=== PATIENT | female | born 1990 | race Asian ===

== ENCOUNTER 2019-11-17 06:55 | Inpatient (IN) | payer BC, OTHER ==
[2019-11-17] MEDS ORDERED: AMPICILLIN SODIUM 2 GM VIAL ONE (07:48)
[2019-11-17] MEDS ORDERED: SODIUM CHLORIDE 100 ML IVPB ONE (07:48)
[2019-11-17] MEDS ORDERED: BUTORPHANOL TARTRATE 1 MG/ML VIAL IVPUSH PRN (08:15)
[2019-11-17] MEDS ORDERED: PROMETHAZINE HCL 25 MG/1 ML VIAL IVPB ONE (08:15)
--- NOTE | 2019-11-17 08:15 | HP ---
Past Medical History - Primary Care Physician PCP:: Bakari Brown - Admission Chief Complaint: 38 weeks, labor History of Present Illness: 29 yo f g 1 p0 38 weeks, c/o contraction since 3 am today, no rom, no bleeding, no fever , GBS positive , cx 3 cm 70 vx -3 fhr car 1, irregular contraction History Source: Patient Limitations to Obtaining History: No Limitations - Past Medical History ...: 1 ...Para: 0 ...EDC by Sono: 11/28/19 Endocrine: Yes: Other (PCOS) - Past Surgical History Hx Myomectomy: No Hx Transabdominal Cerclage: No - Smoking History Have you smoked in the past 12 months: No - Alcohol/Substance Use Hx Alcohol Use: No - Social History Usual Living Arrangement: Yes: With Spouse History of Recent Travel: No Home Medications - Allergies Allergies/Adverse Reactions: Allergies Allergy/AdvReac Type Severity Reaction Status Date / Time No Known Allergies Allergy Verified 11/17/19 09:52 - Home Medications Home Medications: Ambulatory Orders Vitamins (Sjr) - 1 tab PO DAILY 11/17/19 Review of Systems - Review of Systems Constitutional: reports: No Symptoms Eyes: reports: No Symptoms HENT: reports: No Symptoms Neck: reports: No Symptoms Cardiovascular: reports: No Symptoms Respiratory: reports: No Symptoms Gastrointestinal: reports: No Symptoms Genitourinary: reports: No Symptoms Breasts: reports: No Symptoms Reported Musculoskeletal: reports: No Symptoms Integumentary: reports: No Symptoms Neurological: reports: No Symptoms Endocrine: reports: No Symptoms Hematology/Lymphatic: reports: No Symptoms Psychiatric: reports: No Symptoms Physical Exam - Maternity Constitutional: Yes: Well Nourished, No Distress, Calm Eyes: Yes: WNL, Conjunctiva Clear, EOM Intact HENT: Yes: WNL, Atraumatic, Normocephalic Neck: Yes: WNL, Supple, Trachea Midline Cardiovascular: Yes: WNL, Regular Rate and Rhythm Breast(s): Yes: WNL - Abdominal Exam/OB Fundal Height: 38 Number of Fetuses: Single Presentation: Vertex Contractions: Yes Regularity: Irregular Intensity: Moderate Monitor Mode: External Heart Rate Location: [facility] Category: I Accelerations: Non-Uniform Decelerations: None - Vaginal Exam/OB Vaginal Bleediing: No Speculum Exam: No Dilatation (cm): 3 Effacement (%): 70 Amniotic Membrane Status: Bulging Presentation: Vertex/Position Station: -3 - Physical Exam Musculoskeletal: Yes: WNL Extremities: Yes: WNL Edema: LLE: Trace, RLE: Trace Deep Tendon Reflex Grade: Normal +2 Psychiatric: Yes: WNL Hemorrhage Risk Assessment - Risk Factors Medium Risk Factors: Yes: None High Risk Factors: Yes: None Risk Score: 1 Risk Level: Medium Risk Problem List - Problems (1) with 38 completed weeks gestation Code(s): Z3A.38 - 38 WEEKS GESTATION OF (2) Labor established Code(s): EQX9610 - Assessment/Plan admit fhm GBS prophylaxis pain management if irregular contraction will benefit from pitocin stimulation
[2019-11-17] MEDS ORDERED: AMPICILLIN - 2 GM in SODIUM CHLORIDE 100 ML IVPB ONE (08:17)
[2019-11-17] MEDS ORDERED: DEXTROSE 5%-LACTATED RINGERS 1,000 ML IV SCH (08:30)
[2019-11-17] MEDS ORDERED: OXYTOCIN 15 UNITS/ LR 250 ML 250 ML IVPB SCH (09:00)
[2019-11-17] MEDS ORDERED: ELECTROLYTE-148 SOLN 1,000 ML IV SCH (09:00)
[2019-11-17] MEDS ORDERED: OXYTOCIN 30 UNITS in 0.9% NS 30 UNIT/500 ML INFUS.BAG IVPB SCH (09:15)
[2019-11-17 09:29] LABS: BASO % 0.1 % (0-2.0); EOS % 0.4 % (0-4.5); HEMATOCRIT 38.6 % (32.4-45.2); HEMOGLOBIN 12.9 GM/dL (10.7-15.3); LYMPH % 16.3 % (8-40); MCH 30.7 pg (25.7-33.7); MCHC 33.5 g/dl (32.0-36.0); MEAN CELL VOLUME 91.8 fl (80-96); MEAN PLT VOLUME 7.5 fl (7.5-11.1); MONO % 5.4 % (3.8-10.2); NEUT % 77.8 % (42.8-82.8); PLATELET COUNT 229 K/MM3 (134-434); RBC 4.21 M/mm3 (3.60-5.2); RDW 14.6 % (11.6-15.6); WHITE BLOOD COUNT 8.8 K/mm3 (4.0-10.0)
[2019-11-17 09:43] LABS: BLOOD UREA NITROGEN 6.3 mg/dL (7-18); CALCIUM 8.8 mg/dL (8.5-10.1); CREATININE 0.5 mg/dL (0.55-1.3); POTASSIUM 3.9 mmol/L (3.5-5.1)
[2019-11-17 09:44] VITALS: BMI 28.7
[2019-11-17 09:52] LABS: INR 0.99 (0.83-1.09); PROTHROMBIN TIME (PATIENT) 11.7 SEC (9.7-13.0)
[2019-11-17 09:55] LABS: ACTIVATED PTT 29.9 SECONDS (25.2-36.5)
[2019-11-17] MEDS ORDERED: FENTANYL/BUPIVACAINE/NS/PF - PCEA - 50 ML DISP.SYRIN EP ONE ×2 (10:00→15:21)
[2019-11-17] MEDS ORDERED: FENTANYL/BUPIVACAINE/NS/PF - PCEA - 50 ML DISP.SYRIN EP SCH (10:30)
[2019-11-17] MEDS ORDERED: NALOXONE HCL 0.4 MG/ML VIAL IVPUSH PRN (10:53)
[2019-11-17] MEDS ORDERED: AMPICILLIN SODIUM 1 GM VIAL ONE ×2 (10:54→16:02)
[2019-11-17] MEDS ORDERED: OXYTOCIN 30 UNITS in 0.9% NS 30 UNIT/500 ML INFUS.BAG IVPB ONE (10:54)
[2019-11-17] MEDS: AMPICILLIN - 1 GM in SODIUM CHLORIDE 100 ML IVPB SCH ×2 (12:00→16:00)
--- NOTE | 2019-11-17 14:30 | PN ---
Progress Note (short form) - Note Progress Note: cx 6 cm 70 vx -3 arom clear , fhr cat 1, regular contraction, no descent of head ,will revaluate in i hr after ROM Problem List - Problems (1) with 38 completed weeks gestation Code(s): Z3A.38 - 38 WEEKS GESTATION OF (2) Labor established Code(s): [id number] -
[2019-11-17] MEDS ORDERED: LIDOCAINE HCL 1% PRESERVATIVE FREE - 30ML VIAL ONE (16:17)
[2019-11-17] MEDS ORDERED: OXYTOCIN 20 UNITS in 0.9% NS 20 UNIT/1,000 ML INFUS.BAG IV ONE (16:17)
--- NOTE | 2019-11-17 16:28 | PN ---
Progress Note (short form) - Note Progress Note: 9 cm, 100 vx 1+ station, fhr cat 1, regular contraction, scalp electode applied for better fh monitoring during pushing time Problem List - Problems (1) with 38 completed weeks gestation Code(s): Z3A.38 - 38 WEEKS GESTATION OF (2) Labor established Code(s): [id number] -
[2019-11-17] MEDS ORDERED: WITCH HAZEL 50% (TUCKS) 40 PAD/JAR PAD TP PRN (18:24)
[2019-11-17] MEDS ORDERED: METHYLERGONOVINE MALEATE 0.2 MG/1 ML AMP IM PRN (18:24)
[2019-11-17] MEDS ORDERED: BISACODYL 10 MG SUPP.RECT RC PRN (18:24)
[2019-11-17] MEDS ORDERED: BENZOCAINE 28 GM HEMORRHOIDAL OINTMENT TP PRN (18:24)
[2019-11-17] MEDS ORDERED: BENZOCAINE 20% 57 GM BOTTLE TP PRN (18:24)
--- NOTE | 2019-11-17 18:28 | PN ---
Delivery - Delivery Vaginal Delivery: Spontaneous Type of Anesthesia: Epidural Episiotomy/Laceration: None (head delivered . loida, nasopharynx suctioned ,cord around neck once reduced , ant. and post. shoulder with no difficulty , live baby girl 8/9 , no laceration, no episiotmy, ebl 300 cc , no complication , baby and mom bonded) Delivery, Single - [place] Feeding Plan Initial Plan: Exclusive throughout hospitalization
[2019-11-17] MEDS ORDERED: D5W-LR W/ 20 UNITS OXYTOCIN 1,000 ML IV SCH (18:30)
[2019-11-17] MEDS ORDERED: OXYTOCIN 20 UNITS in 0.9% NS 20 UNIT/1,000 ML INFUS.BAG IV SCH (18:30)
[2019-11-18] MEDS: AMPICILLIN - 1 GM in SODIUM CHLORIDE 100 ML IVPB SCH ×2 (02:07→02:08)
[2019-11-18] MEDS: ACETAMINOPHEN 325 MG TABLET (FP) PO PRN ×3 (02:24→17:19)
[2019-11-18] MEDS: IBUPROFEN 600 MG TABLET (FP) PO PRN ×3 (02:25→17:20)
[2019-11-18 07:42] LABS: BASO % 0.2 % (0-2.0); EOS % 0.7 % (0-4.5); HEMATOCRIT 35.6 % (32.4-45.2); HEMOGLOBIN 11.8 GM/dL (10.7-15.3); LYMPH % 16.1 % (8-40); MCH 30.9 pg (25.7-33.7); MCHC 33.1 g/dl (32.0-36.0); MEAN CELL VOLUME 93.3 fl (80-96); MEAN PLT VOLUME 7.5 fl (7.5-11.1); MONO % 6.2 % (3.8-10.2); NEUT % 76.8 % (42.8-82.8); PLATELET COUNT 189 K/MM3 (134-434); RBC 3.82 M/mm3 (3.60-5.2); RDW 14.9 % (11.6-15.6)
--- NOTE | 2019-11-18 08:04 | PN ---
Progress Note (short form) - Note Progress Note: ppd 1 no c/o, voids ok no excess vaginal bleding CBC, BMP 11/17/19 08:43 Last Vital Signs Temp Pulse Resp BP Pulse Ox 98.0 F 88 20 103/69 100 11/18/19 05:00 11/18/19 05:00 11/18/19 05:00 11/18/19 05:00 11/17/19 17:00 abdomen soft, uterus firm, non tender lochia mild no calf tenderness plan ambulate, cbc plan for d/c home in am Problem List - Problems (1) with 38 completed weeks gestation Code(s): Z3A.38 - 38 WEEKS GESTATION OF (2) Labor established Code(s): [id number] -
[2019-11-18] MEDS: FERROUS SO4 325 MG TABLET (FP) PO SCH ×2 (09:00→17:20)
[2019-11-18] MEDS: PRENATAL VITAMINS W/ FOLIC ACID TABLET (FP) PO SCH (09:36)
[2019-11-18 21:48] VITALS: BP 100/66; PULSE 84; TEMP 98.1
[2019-11-18] MEDS ORDERED: SENNOSIDES/DOCUSATE COMBO (SENNA PLUS) TABLET (UD) PO PRN (22:00)
[2019-11-19] MEDS: IBUPROFEN 600 MG TABLET (FP) PO PRN (05:02)
[2019-11-19] MEDS: ACETAMINOPHEN 325 MG TABLET (FP) PO PRN (05:03)
[2019-11-19] MEDS: FERROUS SO4 325 MG TABLET (FP) PO SCH (08:53)
[2019-11-19] MEDS: PRENATAL VITAMINS W/ FOLIC ACID TABLET (FP) PO SCH (10:43)
--- NOTE | 2019-11-19 10:55 | DS ---
Physical Exam-[employer] Vital Signs: Vital Signs Temperature 98.1 F 11/18/19 21:46 Pulse Rate 84 11/18/19 21:46 Respiratory Rate 20 11/18/19 21:46 Blood Pressure 100/66 11/18/19 21:46 O2 Sat by Pulse Oximetry (%) 100 11/17/19 17:00 Constitutional: Yes: Well Nourished, No Distress, Calm Eyes: Yes: WNL, Conjunctiva Clear, EOM Intact HENT: Yes: WNL, Atraumatic, Normocephalic Neck: Yes: WNL, Supple, Trachea Midline Cardiovascular: Yes: WNL, Regular Rate and Rhythm Respiratory: Yes: WNL, Regular, CTA Bilaterally Gastrointestinal: Yes: WNL ...Rectal Exam: Yes: WNL Renal/: Yes: WNL ....Post : Yes: Uterus firm, Uterus non-tender, Slight lochia rubra Breast(s): Yes: WNL Musculoskeletal: Yes: WNL Extremities: Yes: WNL Edema: No Integumentary: Yes: WNL Neurological: Yes: WNL, Alert, Oriented ...Motor Strength: WNL Psychiatric: Yes: WNL, Alert, Oriented Labs: CBC, BMP 11/18/19 07:10 11/17/19 08:43 Delivery - Delivery Vaginal Delivery: Spontaneous Type of Anesthesia: Epidural Episiotomy/Laceration: None EBL (cc): 300 Delivery, Single - Stages of Labor Date 1st Stage Initiatied: 11/17/19 Time 1st Stage Initiated: 00:00 Date 2nd Stage Initiated: 11/17/19 Time 2nd Stage Initiated: 17:00 Date of Delivery: 11/17/19 Time of Delivery: 17:58 Time Placenta Delivered: 18:05 Placenta: Yes: Spontaneous - Condition of Quality Internship/Shoer Present: Yes Name: Mae Berman Gender: Female Weight: 6 lb 7 oz Position: Left, OA Total Hours ROM (Hrs/Mins): 3hrs 58 min - 1 Minute Total Score: 8 5 Minutes Total Score: 9 - Feeding Plan Initial Plan: Exclusive throughout hospitalization Benefits of Exclusively reinforced: Yes Discharge Summary Problems reviewed: Yes Reason For Visit: LABOR ADMISSION Current Active Problems Labor established (Acute) with 38 completed weeks gestation (Acute) Procedures: Principal: Other Procedures: epidural anesthesia Hospital Course: no complication Health Concerns: obesity, PCOS Plan of Treatment: wt loss, exercise , low carb diet Condition: Good - Instructions Diet, Activity, Other Instructions: regular diet, no intercourse , follow up office4 weeks, if fever, pain,heavy vaginal bleeding call md Referrals: Madelyn Molina MD [Staff Physician] - Disposition: HOME - Home Medications Comprehensive Discharge Medication List: Ambulatory Orders Vitamins (Sjr) - 1 tab PO DAILY 11/17/19 Ibuprofen [Motrin -] 600 mg PO QID #28 tablet 11/18/19
== END 2019-11-19 13:50 | disposition home or self-care (01) | DRG 807 ==
LOC: JDEL 06:55 → JLDR 07:45 → J3W 19:56
PROVIDERS: ADMIT Obstetrics & Gynecology; ATTEND Obstetrics & Gynecology
PROC: 10E0XZZ Delivery of Products of Conception, External Approach (ICD-10-PCS; principal; 2019-11-17)
DX: O69.81X0 Labor and delivery complicated by cord around neck, without compression, not applicable or unspecified (principal); Z37.0 Single live birth; Z3A.38 38 weeks gestation of pregnancy
CPT/HCPCS: 36415; 36600; 59409; 80048; 82803; 85025; 85610; 85730; 86593; 86850; 86900; 86901; 87389

== ENCOUNTER 2021-04-29 05:30 | Inpatient (IN) | payer BC, OTHER ==
[2021-04-29] MEDS: ELECTROLYTE-148 SOLN 1,000 ML IV SCH (06:00)
[2021-04-29] MEDS ORDERED: AMPICILLIN - 2 GM in SODIUM CHLORIDE 100 ML IVPB ONE (06:00)
[2021-04-29] MEDS ORDERED: LIDOCAINE HCL 1% PRESERVATIVE FREE - 30ML VIAL ONE (06:56)
[2021-04-29] MEDS ORDERED: OXYTOCIN 20 UNITS in 0.9% NS 20 UNIT/1,000 ML INFUS.BAG IV ONE (06:56)
[2021-04-29 07:11] VITALS: BMI 29.2
[2021-04-29 07:22] LABS: BASO % 0.2 % (0-2.0); EOS % 0.6 % (0-4.5); HEMATOCRIT 38.4 % (32.4-45.2); HEMOGLOBIN 13.1 GM/dL (10.7-15.3); LYMPH % 20.4 % (8-40); MCH 31.3 pg (25.7-33.7); MCHC 34.1 g/dl (32.0-36.0); MEAN CELL VOLUME 91.8 fl (80-96); MONO % 5.4 % (3.8-10.2); NEUT % 73.4 % (42.8-82.8); PLATELET COUNT 205 K/MM3 (134-434); RBC 4.19 M/mm3 (3.60-5.2); RDW 14.5 % (11.6-15.6); WHITE BLOOD COUNT 9.5 K/mm3 (4.0-10.0)
[2021-04-29 07:28] LABS: INR 0.97 (0.83-1.09)
[2021-04-29 07:31] LABS: ACTIVATED PTT 27.6 SECONDS (25.2-36.5)
[2021-04-29 07:44] LABS: CALCIUM 8.6 mg/dL (8.5-10.1)
[2021-04-29 07:46] LABS: BLOOD UREA NITROGEN 7.1 mg/dL (7-18)
[2021-04-29 07:48] LABS: CREATININE 0.4 mg/dL (0.55-1.3)
[2021-04-29] MEDS ORDERED: oxyCODONE HCL 5 MG TABLET PO PRN (08:13)
[2021-04-29] MEDS ORDERED: WITCH HAZEL 50% (TUCKS) 40 PAD/JAR PAD TP PRN (08:13)
[2021-04-29] MEDS ORDERED: BENZOCAINE 20% 57 GM BOTTLE TP PRN (08:13)
[2021-04-29] MEDS ORDERED: BENZOCAINE 28 GM HEMORRHOIDAL OINTMENT TP PRN (08:13)
[2021-04-29] MEDS ORDERED: METHYLERGONOVINE MALEATE 0.2 MG/1 ML AMP IM PRN (08:13)
[2021-04-29] MEDS ORDERED: BISACODYL 10 MG SUPP.RECT RC PRN (08:13)
[2021-04-29] MEDS: ACETAMINOPHEN 325 MG TABLET (FP) PO PRN ×2 (08:25→21:08)
[2021-04-29] MEDS: IBUPROFEN 600 MG TABLET (FP) PO PRN ×2 (08:25→21:09)
[2021-04-29] MEDS ORDERED: AMPICILLIN - 1 GM in SODIUM CHLORIDE 100 ML IVPB SCH (10:00)
[2021-04-29] MEDS: PRENATAL VITAMINS W/ FOLIC ACID TABLET (FP) PO SCH (10:00)
[2021-04-29 12:35] LABS: HIV INTERPRETATION NEGATIVE (NEGATIVE)
[2021-04-29] MEDS: OXYTOCIN 20 UNITS in 0.9% NS 20 UNIT/1,000 ML INFUS.BAG IV SCH (22:12)
[2021-04-30 09:06] LABS: BASO % 0.1 % (0-2.0); EOS % 1.3 % (0-4.5); HEMATOCRIT 36.4 % (32.4-45.2); HEMOGLOBIN 12.1 GM/dL (10.7-15.3); LYMPH % 23.4 % (8-40); MCH 31.1 pg (25.7-33.7); MCHC 33.3 g/dl (32.0-36.0); MEAN CELL VOLUME 93.4 fl (80-96); MEAN PLT VOLUME 8.1 fl (7.5-11.1); NEUT % 71.2 % (42.8-82.8); PLATELET COUNT 200 K/MM3 (134-434); RDW 14.9 % (11.6-15.6); WHITE BLOOD COUNT 10.1 K/mm3 (4.0-10.0)
[2021-04-30] MEDS: IBUPROFEN 600 MG TABLET (FP) PO PRN ×2 (09:41→20:36)
[2021-04-30] MEDS: ACETAMINOPHEN 325 MG TABLET (FP) PO PRN (09:41)
[2021-04-30] MEDS: PRENATAL VITAMINS W/ FOLIC ACID TABLET (FP) PO SCH (09:42)
[2021-04-30] MEDS ORDERED: ENOXAPARIN NA (PORCINE) 40 MG/0.4 ML DISP.SYRIN SQ SCH (10:00)
[2021-04-30 13:07] LABS: SARS-CoV-2 NAA Not Detected (Not Detected)
[2021-04-30] MEDS: OXYTOCIN 20 UNITS in 0.9% NS 20 UNIT/1,000 ML INFUS.BAG IV SCH (21:54)
[2021-04-30] MEDS: ELECTROLYTE-148 SOLN 1,000 ML IV SCH (21:54)
[2021-04-30] MEDS ORDERED: SENNOSIDES/DOCUSATE COMBO (SENNA PLUS) TABLET (UD) PO PRN (22:00)
[2021-04-30 22:09] VITALS: TEMP 98
[2021-05-01 09:31] VITALS: BP 115/62; PULSE 73
[2021-05-01] MEDS: ACETAMINOPHEN 325 MG TABLET (FP) PO PRN (10:32)
[2021-05-01] MEDS: IBUPROFEN 600 MG TABLET (FP) PO PRN (10:33)
[2021-05-01] MEDS: PRENATAL VITAMINS W/ FOLIC ACID TABLET (FP) PO SCH (10:33)
== END 2021-05-01 11:35 | disposition home or self-care (01) | DRG 807 ==
LOC: JLDR 05:30 → J3W 11:08
PROVIDERS: ADMIT Obstetrics & Gynecology; ATTEND Obstetrics & Gynecology
PROC: 10E0XZZ Delivery of Products of Conception, External Approach (ICD-10-PCS; principal; 2021-04-29)
DX: O99.824 Streptococcus B carrier state complicating childbirth (principal); Z37.0 Single live birth; Z3A.39 39 weeks gestation of pregnancy; O99.283 Endocrine, nutritional and metabolic diseases complicating pregnancy, third trimester; E28.2 Polycystic ovarian syndrome
CPT/HCPCS: 36415; 59409; 80048; 85025; 85610; 85730; 86780; 86850; 86900; 86901; 87389; C9803; U0003; U0005